=== PATIENT | female | born 1990 | race Two or more races ===

== ENCOUNTER 2024-05-31 14:53 | Emergency (ER) | payer MEDICAID ==
[~2024-05-31] VITALS: Ht 167.6 cm; Wt 66.2 kg
[2024-05-31 15:16] VITALS: O2SAT 97
[2024-05-31] MEDS ORDERED: AZIT500T PO (15:57)
[2024-05-31] MEDS ORDERED: PRED50TA PO (15:57)
[2024-05-31] MEDS ORDERED: predniSONE 50 MG TABLET ONE (16:00)
[2024-05-31] MEDS ORDERED: AZITHROMYCIN 250 MG TABLET ONE (16:00)
[2024-05-31] MEDS: predniSONE 50 MG TABLET PO ONE (16:02)
[2024-05-31] MEDS: AZITHROMYCIN 250 MG TABLET PO ONE (16:02)
== END 2024-05-31 16:04 | disposition home or self-care (01) ==
LOC: ER 14:54
DX: J18.9 Pneumonia, unspecified organism (principal); J45.909 Unspecified asthma, uncomplicated; Z79.52 Long term (current) use of systemic steroids; Z88.5 Allergy status to narcotic agent
CPT/HCPCS: 99283; J7512; A4606; A4663; Q0144